=== PATIENT | male | born 1995 | race Caucasian/White ===

== ENCOUNTER 2018-01-22 21:26 | Emergency (ER) | payer BC ==
[2018-01-22 22:33] LABS: #Lymphocytes 1.9 thou/uL (1.20-3.40); #Monocytes 0.7 thou/uL (0.11-0.59); #Neutrophils 11.4 thou/uL (1.40-6.50); %Basophils 0.3 % (0.0-1.0); %Eosinophils 0.3 % (0.0-10.0); %Lymphocytes 13.5 % (28.0-48.0); %Monocytes 5.2 % (0.0-4.0); %Neutrophils 80.7 % (31.0-61.0); Hemoglobin 16.2 g/dL (14.0-18.0); Mean Corpuscular HGB CONC 35.3 g/dL (32.0-36.0); Mean Corpuscular Hemoglobin 31.9 pg (25.0-35.0); Mean Corpuscular Volume 90.4 fL (78.0-98.0); Mean Platelet Volume 7.8 fL (7.4-10.4); Platelet Count 204 thou/uL (130-400); RBC Distribution Width 11.1 % (11.5-14.5); Red Blood Cell (RBC) Count 5.07 mill/uL (4.00-5.20); White Blood Cell (WBC) Count 14.1 thou/uL (4.8-10.8)
--- NOTE | 2018-01-22 22:35 | RAD ---
CHEST TWO VIEW 01/22/18 HISTORY: Fall from bed of trunk. Hit head and nose. COMPARISON: None. FINDINGS: Lungs without focal air space consolidation, pneumothorax or effusion. The cardiac silhouette and me diastinal contours within normal limits. No acute displaced rib fracture. IMPRESSION: No acute intrathoracic abnormality. POS: H
--- NOTE | 2018-01-22 22:41 | CT ---
CT CERVICAL SPINE WITHOUT CONTRAST: 01/22/18 HISTORY: Fall from bed of a trunk, trauma. Positive loss of consciousness. COMPARISON: None. FINDINGS: The odontoid process is intact. The occipital condyles are intact. There is mild straightening of the cervical spine. May be sequela of cervical collar. No acute fracture or malalignment. The paraspinal soft tissues are unremarkable. IMPRESSION: No acute fracture or malalignment cervical spine. POS: TRACE
--- NOTE | 2018-01-22 22:44 | CT ---
NONCONTRAST HEAD CT 01/22/18 HISTORY: Patient fell from the bed of a trunk. Posttraumatic headache and pain. Patient hit head. COMPARISON: None. TECHNIQUE: Noncontrast head CT is performed from skull base to skull vertex. FINDINGS: No parenchymal hemorrhage. No extra-axial hematoma. No midline shift. Basilar cisterns are patent. Br ain volume, age appropriate. Cortical perry-white matter differentiation is preserved. The ventricles and sulci are patent and symmetric. Air fluid level in the right maxillary sinus sugge sting sinus disease. The remaining paranasal sinuses and mastoid air cells are adequately aerated. The calvarium is intact. There is soft tissue swelling about the bridge of the nose. Depressed nasal bone fracture is suspected. IMPRESSION: 1. No intracranial posttraumatic sequela. 2. Soft tissue swelling and possible nasal bone fracture. POS: PPP
== END 2018-01-22 22:33 | disposition home or self-care (01) ==
LOC: ERS 21:26
DX: S02.2XXA Fracture of nasal bones, initial encounter for closed fracture (principal); S16.1XXA Strain of muscle, fascia and tendon at neck level, initial encounter; S00.83XA Contusion of other part of head, initial encounter; S00.31XA Abrasion of nose, initial encounter; S20.319A Abrasion of unspecified front wall of thorax, initial encounter; S80.812A Abrasion, left lower leg, initial encounter; S80.811A Abrasion, right lower leg, initial encounter; W06.XXXA Fall from bed, initial encounter
CPT/HCPCS: 36415; 70450; 71046; 72125; 85025